=== PATIENT | female | born 1960 | race Caucasian/White ===

== ENCOUNTER 2017-05-31 19:02 | Observation (INO) | payer MEDICAID ==
[~2017-05-31] VITALS: Ht 165.1 cm; Wt 52.0 kg
[2017-05-31 19:30] VITALS: BP 126/78
[2017-05-31 20:31] LABS: CLARITY,URINE CLEAR (Clear); COLOR,URINE YELLOW (Yellow); GLUCOSE, URINE NEGATIVE (Neg); KETONES,URINE 15 mg/dl (Neg); LEUKOCYTE ESTERASE ,URINE NEGATIVE (Neg); NITRITES, URINE NEGATIVE (Neg); OCCULT BLOOD,URINE MODERATE (Neg); PH,URINE 5.5 (4.8-8.0); PROTEIN,URINE TRACE mg/dl (Neg); UROBILINOGEN,URINE 0.2 E.U/dL (0.2-1.0)
[2017-05-31 20:42] LABS: UA COLLECTION TYPE CLN CATCH MIDSTREAM
[2017-05-31 20:43] LABS: BACTERIA,URINE NONE SEEN /HPF (Neg); SQUAMOUS EPITHELIAL CELL,UR FEW /LPF (FEW); WBC,URINE 0-4 /HPF (0-4)
[2017-05-31 20:44] LABS: BASOPHILS % (AUTO) 0.1 % (0-1); EOSINOPHILS % (AUTO) 0.3 % (0-6); HEMATOCRIT 38.2 % (35.0-45.0); LYMPHOCYTES # (AUTO) 1.5 X10'3 (1.1-4.8); LYMPHOCYTES % (AUTO) 13.3 % (21-51); MEAN CORPUSCULAR HEMOGLOBIN 30.8 PG (27.0-31.0); MEAN CORPUSCULAR HGB CONC 34.1 % (33.0-36.5); MEAN CORPUSCULAR VOLUME 90.3 FL (78-98); MEAN PLATELET VOLUME 7.3 FL (7.4-10.4); MONOCYTES % (AUTO) 9.1 % (2-12); NEUTROPHILS # (AUTO) 8.6 X10'3 (1.8-7.7); NEUTROPHILS % (AUTO) 77.2 % (42-75); PLATELET COUNT 260 X10'3 (140-440); RED BLOOD COUNT 4.22 X10'6 (4.20-5.60); RED CELL DISTRIBUTION WIDTH 13.9 % (11.5-14.5); WHITE BLOOD COUNT 11.2 X10'3 (4.5-11.0)
[2017-05-31 20:55] LABS: INR 1.2 INR; PROTHROMBIN TIME 12.2 SECONDS (9.0-12.0)
[2017-05-31] MEDS ORDERED: temazepam 15mg capsule PO PRN (21:00)
[2017-05-31 21:10] LABS: ALANINE AMINOTRANSFERASE 22 U/L (12-78); ALBUMIN 4.1 G/DL (3.4-5.0); ALBUMIN/GLOBULIN RATIO 1.1 (1.1-1.5); ALKALINE PHOSPHATASE 62 IU/L (46-116); ANION GAP 7 (8-16); ASPARTATE AMINO TRANSFERASE 13 U/L (10-37); BILIRUBIN,TOTAL 0.7 MG/DL (0.1-1.0); BLOOD UREA NITROGEN 23 MG/DL (7-18); BUN/CREATININE RATIO 33.3 (6.6-38.0); CALCIUM 8.9 MG/DL (8.5-10.1); CHLORIDE 101 MMOL/L (99-107); CREATININE 0.69 MG/DL (0.40-0.90); GLUCOSE 105 MG/DL (70-104); POTASSIUM 3.6 MMOL/L (3.5-5.1); SODIUM 138 MMOL/L (135-145); TOTAL CARBON DIOXIDE 29.6 MMOL/L (24-32); TOTAL PROTEIN 7.7 G/DL (6.4-8.2); eGFR 88 ML/MIN
[2017-05-31] MEDS ORDERED: tamsulosin 0.4mg capsule PO ONE (22:25)
[2017-05-31] MEDS ORDERED: normal saline 1000ml 1,000 ML IV ONE (23:18)
[2017-05-31] MEDS ORDERED: piperacillin/tazo 3.375gm/50ml 50 ML IV ONE (23:20)
[2017-05-31] MEDS ORDERED: morphine 2 MG/ML inj. syringe IV PRN (23:20)
[2017-05-31] MEDS ORDERED: diphenhydrAMINE 25mg capsule PO PRN (23:40)
[2017-05-31] MEDS ORDERED: diphenhydrAMINE 50 mg/ml inj IV PRN (23:40)
[2017-05-31] MEDS ORDERED: acetaminophen 325mg tablet PO PRN (23:40)
[2017-05-31] MEDS ORDERED: metoclopramide 5 mg/ml inj IV PRN (23:40)
[2017-05-31] MEDS ORDERED: magnesium hydroxide 30ml (MOM) UD suspension PO PRN (23:40)
[2017-05-31] MEDS ORDERED: mag hydrox/Alum hydrox/simeth 30ml oral suspension PO PRN (23:40)
[2017-05-31] MEDS ORDERED: ondansetron/PF 4mg/2ml inj IV PRN (23:40)
[2017-06-01] VITALS (16 sets, daily range): BP systolic 114–141; BP diastolic 45–79
[2017-06-01] MEDS: normal saline 1000ml 1,000 ML IV SCH ×3 (00:01→19:38)
[2017-06-01] MEDS: piperacillin/tazo 4.5gm/100ml 100 ML IV SCH ×3 (00:06→16:19)
[2017-06-01] MEDS: HYDROmorphone inj. 0.5 MG/0.5 ML DISP.SYRIN IV PRN ×2 (01:46→05:22)
[2017-06-01] MEDS ORDERED: BUPIVAcaine/PF 2.5 mg/ml (0.25%) 30ml vial ONE (07:17)
[2017-06-01] MEDS ORDERED: LIDOcaine 1% 30ml vial 30 ML ONE (07:17)
[2017-06-01] MEDS ORDERED: glycopyrrolate 0.2mg/ml inj ONE (07:52)
[2017-06-01] MEDS ORDERED: sevoflurane 250ml liquid IH ONE (07:52)
[2017-06-01] MEDS ORDERED: fentaNYL/PF 50MCG/1 ML 2ML syringe ONE (08:02)
[2017-06-01] MEDS ORDERED: LIDOcaine 2% (20mg/ml) 5ml vial ONE (08:03)
[2017-06-01] MEDS ORDERED: midazolam 2 mg/2 ml injection ONE (08:03)
[2017-06-01] MEDS ORDERED: propofol inj 20 ML IV ONE (08:03)
[2017-06-01] MEDS ORDERED: dexamethasone sod phosphate 4mg/ml inj. ONE (08:11)
[2017-06-01 08:18] LABS: BASOPHILS % (AUTO) 0.2 % (0-1); EOSINOPHILS % (AUTO) 0 % (0-6); HEMATOCRIT 34.4 % (35.0-45.0); HEMOGLOBIN 11.8 g/dl (12.0-16.0); LYMPHOCYTES # (AUTO) 1.3 X10'3 (1.1-4.8); LYMPHOCYTES % (AUTO) 13.5 % (21-51); MEAN CORPUSCULAR HEMOGLOBIN 31.1 PG (27.0-31.0); MEAN CORPUSCULAR HGB CONC 34.4 % (33.0-36.5); MEAN CORPUSCULAR VOLUME 90.3 FL (78-98); MEAN PLATELET VOLUME 7.4 FL (7.4-10.4); MONOCYTES # (AUTO) 0.8 X10'3 (0-0.9); MONOCYTES % (AUTO) 8.6 % (2-12); NEUTROPHILS # (AUTO) 7.3 X10'3 (1.8-7.7); NEUTROPHILS % (AUTO) 77.7 % (42-75); PLATELET COUNT 224 X10'3 (140-440); RED BLOOD COUNT 3.81 X10'6 (4.20-5.60); RED CELL DISTRIBUTION WIDTH 13.4 % (11.5-14.5); WHITE BLOOD COUNT 9.3 X10'3 (4.5-11.0)
[2017-06-01] MEDS ORDERED: ringers solution, lacted 1,000 ML IV SCH (08:22)
[2017-06-01] MEDS ORDERED: ondansetron/PF 4mg/2ml inj IV PRN (08:25)
[2017-06-01] MEDS ORDERED: meperidine/PF 50mg/ml syringe IV PRN ×3 (08:25)
[2017-06-01] MEDS ORDERED: morphine 2 MG/ML inj. syringe IV PRN ×2 (08:25)
[2017-06-01] MEDS ORDERED: proCHLORperazine 10 MG/2 ml inj IV PRN (08:25)
[2017-06-01 08:30] LABS: ALBUMIN 3.4 G/DL (3.4-5.0); ANION GAP 9 (8-16); BLOOD UREA NITROGEN 18 MG/DL (7-18); BUN/CREATININE RATIO 28.1 (6.6-38.0); CALCIUM 8.4 MG/DL (8.5-10.1); CHLORIDE 103 MMOL/L (99-107); CREATININE 0.64 MG/DL (0.40-0.90); GLUCOSE 99 MG/DL (70-104); POTASSIUM 3.6 MMOL/L (3.5-5.1); SODIUM 139 MMOL/L (135-145); TOTAL CARBON DIOXIDE 26.6 MMOL/L (24-32); eGFR > 90 ML/MIN
[2017-06-01] MEDS ORDERED: LIDOcaine 1% 30ml preserv. free vial IJ ONE (08:30)
[2017-06-01] MEDS ORDERED: neostigmine methylsulfate 1 MG/ML 10ml vial ONE (09:03)
[2017-06-01] MEDS ORDERED: rocuronium 10mg/ml inj IV ONE (09:03)
[2017-06-01] MEDS ORDERED: HYDROcodone/acetaminophen 10/325mg tab PO PRN (09:20)
[2017-06-01] MEDS ORDERED: HYDROcodone/acetaminophen 5mg/325mg tablet PO PRN (09:25)
[2017-06-01] MEDS: ketorolac trometh. 30mg/ml inj. IV SCH ×3 (09:51→20:00)
[2017-06-02] VITALS: BP 106/56
[2017-06-02] MEDS: piperacillin/tazo 4.5gm/100ml 100 ML IV SCH ×2 (00:46→08:10)
[2017-06-02] MEDS: ketorolac trometh. 30mg/ml inj. IV SCH ×2 (02:00→08:09)
[2017-06-02 04:00] VITALS: BP 136/79
[2017-06-02 05:26] LABS: BASOPHILS % (AUTO) 0.2 % (0-1); EOSINOPHILS % (AUTO) 0.4 % (0-6); HEMATOCRIT 33.6 % (35.0-45.0); HEMOGLOBIN 11.5 g/dl (12.0-16.0); LYMPHOCYTES % (AUTO) 10.9 % (21-51); MEAN CORPUSCULAR HEMOGLOBIN 30.5 PG (27.0-31.0); MEAN CORPUSCULAR HGB CONC 34.1 % (33.0-36.5); MEAN CORPUSCULAR VOLUME 89.3 FL (78-98); MEAN PLATELET VOLUME 7.7 FL (7.4-10.4); MONOCYTES # (AUTO) 0.7 X10'3 (0-0.9); MONOCYTES % (AUTO) 7.2 % (2-12); NEUTROPHILS # (AUTO) 7.8 X10'3 (1.8-7.7); NEUTROPHILS % (AUTO) 81.3 % (42-75); PLATELET COUNT 234 X10'3 (140-440); RED BLOOD COUNT 3.76 X10'6 (4.20-5.60); RED CELL DISTRIBUTION WIDTH 13.2 % (11.5-14.5); WHITE BLOOD COUNT 9.6 X10'3 (4.5-11.0)
[2017-06-02 05:54] LABS: ALBUMIN 3.1 G/DL (3.4-5.0); ANION GAP 5 (8-16); BLOOD UREA NITROGEN 15 MG/DL (7-18); BUN/CREATININE RATIO 19.7 (6.6-38.0); CALCIUM 8.3 MG/DL (8.5-10.1); CHLORIDE 105 MMOL/L (99-107); CREATININE 0.76 MG/DL (0.40-0.90); GLUCOSE 118 MG/DL (70-104); POTASSIUM 3.7 MMOL/L (3.5-5.1); SODIUM 140 MMOL/L (135-145); TOTAL CARBON DIOXIDE 30.2 MMOL/L (24-32); eGFR 79 ML/MIN
[2017-06-02] MEDS: normal saline 1000ml 1,000 ML IV SCH (06:47)
[2017-06-02 07:26] VITALS: BP 116/71
[2017-06-02 11:00] VITALS: BP 121/68
== END 2017-06-02 11:50 | disposition home or self-care (01) ==
LOC: ER 19:04 → ED HOLD 23:36 → PACU 06-01 08:31 → SUR 3N 06-01 10:44
PROVIDERS: ADMIT Hospitalist; ATTEND Internal Medicine
DX: K35.80 Unspecified acute appendicitis (principal); F17.210 Nicotine dependence, cigarettes, uncomplicated; E03.9 Hypothyroidism, unspecified
CPT/HCPCS: 36415; 44970; 71045; 74176; 80048; 80053; 81001; 85025; 85610; 93005; 96365; 96366; 96375; 96376; 99285; G0378; J1100; J1170; J1885; J2001; J2250; J2543; J2704; J2710; J3010; J3490; J7030; J7120; A7000